=== PATIENT | male | born 1950 | race Asian ===

== ENCOUNTER 2016-09-10 07:59 | Emergency (ER) | payer MEDICARE, MEDICAID ==
[~2016-09-10] VITALS: Ht 167.6 cm; Wt 81.2 kg
[2016-09-10 08:35] LABS: Basophils # (auto) 0 uL; Basophils % (auto) 0.3 % (0.0-2.0); Eosinophils # (auto) 0.3 uL; Eosinophils % (auto) 3.8 % (0.0-7.0); Hemoglobin 15.5 g/dL (13.5-17.5); Lymphocytes # (auto) 1.4 uL; Lymphocytes % (auto) 20.7 % (10.0-50.0); Mean Corpuscular Hemoglobin 31.8 pg (28.0-32.0); Mean Corpuscular Hgb Conc. 33.6 g/dL (32.0-36.0); Mean Corpuscular Volume 94.6 fL (80.0-100.0); Mean Platelet Volume 7.1 fL (7.4-10.4); Monocytes # (auto) 0.8 uL; Monocytes % (auto) 11.1 % (0.0-12.0); Neutrophils # (auto) 4.4 uL; Neutrophils % (auto) 64.1 % (37.0-80.0); Platelet Count (auto) 305 10^3/uL (140-450); Red Cell Distribution Width 12.2 % (11.6-16.0); White Blood Cell 6.9 10^3/uL (4.4-10.8)
[2016-09-10 08:52] LABS: INR 1.04 (0.9-1.15); Partial Thromboplastin Time 28.7 sec (22.64-33.71); Prothrombin Time 10.7 sec (9.37-12.3)
[2016-09-10 09:09] LABS: Albumin 3.5 g/dL (3.4-5.0); Alkaline Phosphatase 120 U/L (45-117); Anion Gap 11 (5-15); Aspartate Aminotransferase 25 U/L (15-37); BUN/Creatinine Ratio 18.8; Bilirubin, Total 0.3 mg/dL (0.2-1.0); Blood Urea Nitrogen 26 mg/dL (7-18); Calcium 8.6 mg/dL (8.5-10.1); Carbon Dioxide 25 mmol/L (21-32); Chloride 101 mmol/L (98-107); GFR African American 67 mL/min; GFR Non-African American 55 mL/min; Glucose 298 mg/dL (74-106); Potassium 3.6 mmol/L (3.5-5.1); Sodium 137 mmol/L (136-145); Total Protein 7.6 g/dL (6.4-8.2)
[2016-09-10] MEDS ORDERED: MECLIZINE HCL 25 MG TAB PO ONE (12:45)
[2016-09-10] MEDS ORDERED: SODIUM CHLORIDE 0.9% 1,000 ML IV ONE (13:18)
[2016-09-10 14:43] VITALS: BP 141/81
== END 2016-09-10 14:44 | disposition home or self-care (01) ==
LOC: ER 07:59
DX: R73.9 Hyperglycemia, unspecified (principal); Z90.89 Acquired absence of other organs
CPT/HCPCS: 36415; 70450; 80053; 84484; 85025; 85610; 85730; 93005; 96360; 99285; J7030; J8597